=== PATIENT | male | born 1960 | race Two or more races ===

== ENCOUNTER 2020-03-14 07:43 | Outpatient (CLI) | payer OTHER | END 2020-03-14 10:58 | disposition home or self-care (01) | LOC: NUCLEAR 07:43 | PROVIDERS: ATTEND Internal Medicine Cardiovascular Disease | DX: I11.9 Hypertensive heart disease without heart failure (principal); I25.118 Atherosclerotic heart disease of native coronary artery with other forms of angina pectoris | CPT/HCPCS: A9500; 93017; 78452 ==